=== PATIENT | male | born 1980 | race Caucasian/White ===

== ENCOUNTER 2016-08-15 17:44 | Emergency (ER) | payer MEDICARE | END 2016-08-15 19:59 | disposition home or self-care (01) | LOC: ER 17:44 | DX: K02.9 Dental caries, unspecified (principal) ==

== ENCOUNTER 2016-08-23 12:04 | Emergency (ER) | payer MEDICARE | END 2016-08-23 13:00 | disposition home or self-care (01) | LOC: ER 12:04 | DX: K04.7 Periapical abscess without sinus (principal); F17.210 Nicotine dependence, cigarettes, uncomplicated | CPT/HCPCS: 96372; J1885 ==